=== PATIENT | male | born 1975 ===

== ENCOUNTER 2025-08-06 10:20 | Day surgery (SDC) | payer OTHER ==
[2025-08-06] VITALS (23 sets, daily range): BP systolic 88–136; BP diastolic 50–118
[~2025-08-06] VITALS: Ht 175.3 cm; Wt 109.0 kg
[~2025-08-06 10:20] MED LIST: OMEP20ER PO; PRILOSEC OTC20 MG; SERT100 PO; SILD50TA PO
--- NOTE | 2025-08-06 13:28 | NUR ---
08/06/25 [id number] Christina Loja CONFIRMED AND REVIEWED H&P, MEDCICATIONS, ALLERGIES, MEDICAL HISTORY, RESPIRATORY HISTORY, VITAL SIGNS, 3-LEAD EKG, CONSENTS, AND PHYSICIAN ORDERS. PATIENT CONFIRMS NPO STATUS AND AGREES WITH SCHEDULED PROCEDURE. MONITOR INTACT WITH CONTINUOUS PULSE OXIMETRY, CAPNOGRAPHY, 3-LEAD EKG, INTERMITTENT BP. SUPPLEMENTAL O2 TO BE TITRATED THROUGHOUT PROCEDURE TO MAINTAIN O2 SATURATION ABOVE 90%. PATIENT DETERMINED TO BE ASA APPROPRIATE FOR PROPOFOL SEDATION PRIOR TO START OF PROCEDURE BY DR. VILLAREAL.
[2025-08-06] MEDS ORDERED: Midazolam HCl 1MG / ML 2ML Vial ONE (13:35)
--- NOTE | 2025-08-06 14:46 | NUR ---
Patient States Post-Procedure ride home has been arranged. Discharged via wheelchair to private car for ride home. Discharge instructions reviewed with patient. Patient verbalizes understanding. Copy given to patient to take home.
== END 2025-08-06 23:57 | disposition home or self-care (01) ==
LOC: ORSCMMR 10:20 → ORD 13:00 → ORSCMMR 23:57
PROVIDERS: Family Medicine
PROC: 0DJD8ZZ Inspection of Lower Intestinal Tract, Via Natural or Artificial Opening Endoscopic (ICD-10-PCS; principal; 2025-08-06 12:00)
PROC: 0DB68ZX Excision of Stomach, Via Natural or Artificial Opening Endoscopic, Diagnostic (ICD-10-PCS; principal; 2025-08-06 12:00)
PROC: 0DB48ZX Excision of Esophagogastric Junction, Via Natural or Artificial Opening Endoscopic, Diagnostic (ICD-10-PCS; principal; 2025-08-06 12:00)
DX: K21.9 Gastro-esophageal reflux disease without esophagitis (principal); K29.50 Unspecified chronic gastritis without bleeding; K44.9 Diaphragmatic hernia without obstruction or gangrene; K22.70 Barrett's esophagus without dysplasia; Z12.11 Encounter for screening for malignant neoplasm of colon; Z79.899 Other long term (current) drug therapy; F17.220 Nicotine dependence, chewing tobacco, uncomplicated
CPT/HCPCS: 88305; 88342; J2250; J2704; J7120